=== PATIENT | male | born 1985 | race Caucasian/White ===

== ENCOUNTER 2017-03-26 17:29 | Emergency (ER) | payer MEDICAID ==
[~2017-03-26] VITALS: Ht 185.4 cm; Wt 90.7 kg
[2017-03-26] MEDS ORDERED: KETOROLAC TROMETH 60MG/2ML VIAL IM ONE (18:45)
[2017-03-26] MEDS ORDERED: HYDROcodone-ACET 5/325MG TAB PO ONE (18:45)
[2017-03-26 20:17] VITALS: BP 133/79
== END 2017-03-26 21:24 | disposition home or self-care (01) ==
LOC: ER 17:29
DX: M25.512 Pain in left shoulder (principal); V49.49XA Driver injured in collision with other motor vehicles in traffic accident, initial encounter; Y93.89 Activity, other specified; Y92.410 Unspecified street and highway as the place of occurrence of the external cause; Y99.8 Other external cause status
CPT/HCPCS: 73030; 96372; 99284; J1885